=== PATIENT | female | born 1940 | race Caucasian/White ===

== ENCOUNTER → 2016-05-05 | Outpatient (CLI) | payer MEDICARE, OTHER ==
[~2016-05-05] MED LIST: ALPR0.5T3 PO; CARD180C5 PO; ESCI10TA PO; GABA600T PO; LOSA25TA PO; TRIA1SPR6 EACH NARE
--- NOTE | 2016-05-20 12:55 | RSPPFT ---
DATE OF PROCEDURE: 05/05/16 COMMENTS: VOLUMES DYNAMIC: FVC and FEV1 normal. STATIC: VTG, RV mildly increased; TLC normal. FLOWS: FEV1% mildly reduced; FEF 25-75 severely reduced. DIFFUSION: Normal. FLOW VOLUME LOOP: Terminal airflow obstruction. IMPRESSION: Mild obstructive ventilatory defect with no reduction in diffusion but with mild hyperinflation and a mild increase in airways resistance. There is significant improvement post-bronchodilator.
== END ==
LOC: HRSP 09:42
PROVIDERS: ATTEND Internal Medicine
DX: J44.9 Chronic obstructive pulmonary disease, unspecified (principal)
CPT/HCPCS: 94620

== ENCOUNTER → 2016-10-22 | Outpatient (CLI) | payer MEDICARE, OTHER ==
[~2016-10-22] MED LIST changes: -ALPR0.5T3 PO; -CARD180C5 PO; -ESCI10TA PO; +GABA300C5 PO; +LEXA10TA PO; -TRIA1SPR6 EACH NARE; +VIST25CA PO
[2016-10-22 09:10] LABS: BASOPHIL # 0.1 TH/MM3 (0-0.2); BASOPHIL % 1.9 % (0.0-2.0); EOSINOPHIL # 0.2 TH/MM3 (0-0.4); HEMATOCRIT 45.3 % (35.0-46.0); HEMO FLAGS DIFF FINAL; LYMPH % 26.9 % (9.0-44.0); LYMPHOCYTE # 1.4 TH/MM3 (1.0-4.8); MEAN CELL VOLUME 86.1 FL (80.0-100.0); MEAN CORPUSCULAR HEMOGLOBIN 28.9 PG (27.0-34.0); MEAN CORPUSCULAR HGB CONC 33.6 % (32.0-36.0); MONO % 9.6 % (0.0-8.0); NEUT % 58.6 % (16.0-70.0); PLATELET COUNT 216 TH/MM3 (150-450); RED BLOOD COUNT 5.26 MIL/MM3 (4.00-5.30); WHITE BLOOD COUNT 5.1 TH/MM3 (4.0-11.0)
[2016-10-22 09:42] LABS: AST (GOT) 17 U/L (15-37); BICARBONATE 25.4 MEQ/L (21.0-32.0); BLOOD UREA NITROGEN 11 MG/DL (7-18); GLOMERULAR FILTRATION RATE 63 ML/MIN (>89); GLUCOSE,FASTING 91 MG/DL (74-99)
[2016-10-22 14:55] LABS: ALKALINE PHOSPHATASE 55 U/L (45-117); ALT (GPT) 18 U/L (10-53)
[2016-10-22 14:56] LABS: ANION GAP 7 MEQ/L (5-15); CHLORIDE 106 MEQ/L (98-107); POTASSIUM 3.9 MEQ/L (3.5-5.1); SODIUM (NA) 138 MEQ/L (136-145); TOTAL BILIRUBIN ADULT 0.4 MG/DL (0.2-1.0)
[2016-10-22 14:57] LABS: LDL CHOLESTEROL 143 MG/DL (0-99)
== END ==
LOC: PLAB 07:17
PROVIDERS: ATTEND Family Medicine
DX: Z00.00 Encounter for general adult medical examination without abnormal findings (principal); G62.2 Polyneuropathy due to other toxic agents; R39.0 Extravasation of urine; R53.83 Other fatigue; G93.3 Postviral and related fatigue syndromes; R53.81 Other malaise; R53.1 Weakness; G62.9 Polyneuropathy, unspecified; Z77.010 Contact with and (suspected) exposure to arsenic
CPT/HCPCS: 36415; 80053; 80061; 82175; 82306; 82607; 84443; 85025

== ENCOUNTER 2016-11-27 13:06 | Emergency (ER) | payer MEDICARE, OTHER ==
[~2016-11-27] VITALS: Ht 167.6 cm; Wt 62.0 kg
[~2016-11-27 13:06] MED LIST changes: -GABA300C5 PO; -LEXA10TA PO
[2016-11-27 13:13] VITALS: BP 202/95; PULSE 70; RESP 16; TEMP 98.9; O2SAT 96
[2016-11-27] MEDS ORDERED: GABA300C5 PO (13:29)
[2016-11-27] MEDS ORDERED: SODIUM CHLORIDE 0.9% FLUSH 10 ML FLUSH IVF PRN (13:45)
--- NOTE | 2016-11-27 13:51 | PD ---
HPI Chief Complaint: Neuro Symptoms/ Deficits Time Seen by Provider: 13:39 Travel History International Travel<30 days: No Contact w/Intl Traveler<30days: No Traveled to known affect area: No History of Present Illness HPI This patient complains of numbness in her left hand. It radiated up her arm to the level of the shoulder. It lasted approximately 2 minutes and resolve spontaneously. She is currently having no numbness problems. Denies muscle weakness anywhere or speech slurring or confusion. She did report having frontal headache. She takes a baby aspirin daily. No prior history of stroke or TIA. She's had this happen twice in the last month and both resolved spontaneously. No alleviating factors. No exacerbating factors. She has history of anxiety but does not take antihypertensives. Blood pressure 203 systolic PFSH Past Medical History Arthritis: Yes (PER PT) Anxiety: Yes Cardiovascular Problems: Yes High Cholesterol: Yes COPD: Yes Diminished Hearing: No Gastrointestinal Disorders: Yes (CONSTIPATION AND DIARRHEA) Headaches: Yes Hypertension: Yes Neurologic: Yes (NEUROPATHY PER PT.) Immunizations Current: Yes Pneumonia: Yes Tetanus Vaccination: Unknown ?: Not Menopausal: Yes : 4 Para: 3 : 1 Dilation and Curettage (D&C): Yes Past Surgical History Abdominal Surgery: Yes (LEFT INGUINAL HERNIA REPAIR 2009) Oral Surgery: Yes (CROWNS ) Other Surgery: Yes (BREAST REDUCTION 1993) Social History Alcohol Use: No Tobacco Use: No (QUIT 1979) Substance Use: No Allergies-Medications (Allergen,Severity, Reaction): Coded Allergies: No Known Allergies (Verified , 11/27/16) Reported Meds & Prescriptions Reported Meds & Active Scripts Active Vistaril (Hydroxyzine Pamoate) 25 Mg Cap 25 Mg PO TID PRN Reported Gabapentin 300 Mg Cap 300 Mg PO BID Losartan (Losartan Potassium) 25 Mg Tab 12.5 Mg PO DAILY Review of Systems General / Constitutional: No: Fever Eyes: No: Visual changes HENT: Positive: Headaches Cardiovascular: No: Chest Pain or Discomfort Respiratory: No: Shortness of Breath Gastrointestinal: No: Abdominal Pain Genitourinary: No: Dysuria Musculoskeletal: No: Pain Skin: No Rash Neurologic: Positive: Headache, Sensory Disturbance, No: Weakness Psychiatric: Positive: Anxiety, No: Depression Endocrine: No: Polydipsia Hematologic/Lymphatic: No: Easy Bruising Physical Exam Narrative GENERAL: Well-nourished, well-developed patient in no apparent distress. SKIN: Focused skin assessment reveals no rash and nodules. Skin is Warm and dry. HEAD: Atraumatic. Normocephalic. EYES: Pupils equal and round. No scleral icterus. No injection or drainage. ENT: No nasal bleeding or discharge. Mucous membranes pink and moist. NECK: Trachea midline. No JVD. CARDIOVASCULAR: Regular rate and rhythm. No murmur appreciated. RESPIRATORY: No accessory muscle use. Clear to auscultation. Breath sounds equal bilaterally. GASTROINTESTINAL: Abdomen soft, non-tender, nondistended. Hepatic and splenic margins not palpable. MUSCULOSKELETAL: No obvious deformities. No clubbing. No cyanosis. No edema. NEUROLOGICAL: Awake and alert. No obvious cranial nerve deficits. Motor grossly within normal limits. Normal speech. Sensation intact to sharp and light touch. No facial droop. PSYCHIATRIC: Anxious mood and affect; insight and judgment normal. Data Data Last Documented VS Vital Signs Date Time Temp Pulse Resp B/P (MAP) Pulse Ox O2 Delivery O2 Flow Rate FiO2 11/27/16 14:47 64 16 169/82 (111) 97 11/27/16 13:13 98.9 Orders Orders Electrocardiogram (11/27/16 13:44) Prothrombin Time / Inr (Pt) (11/27/16 13:44) Act Partial Throm Time (Ptt) (11/27/16 13:44) Complete Blood Count With Diff (11/27/16 13:44) Basic Metabolic Panel (Bmp) (11/27/16 13:44) Ct Brain W/O Iv Contrast(Rout) (11/27/16 13:44) Ecg Monitoring (11/27/16 13:44) Iv Access Insert/Monitor (11/27/16 13:44) Oximetry (11/27/16 13:44) Sodium Chloride 0.9% Flush (Ns Flush) (11/27/16 13:45) Labs Laboratory Tests Test 11/27/16 13:45 White Blood Count 7.8 TH/MM3 Red Blood Count 5.00 MIL/MM3 Hemoglobin 14.1 GM/DL Hematocrit 42.1 % Mean Corpuscular Volume 84.2 FL Mean Corpuscular Hemoglobin 28.1 PG Mean Corpuscular Hemoglobin Concent 33.4 % Red Cell Distribution Width 13.0 % Platelet Count 220 TH/MM3 Mean Platelet Volume 8.6 FL Neutrophils (%) (Auto) 63.5 % Lymphocytes (%) (Auto) 24.8 % Monocytes (%) (Auto) 8.5 % Eosinophils (%) (Auto) 2.4 % Basophils (%) (Auto) 0.8 % Neutrophils # (Auto) 4.9 TH/MM3 Lymphocytes # (Auto) 1.9 TH/MM3 Monocytes # (Auto) 0.7 TH/MM3 Eosinophils # (Auto) 0.2 TH/MM3 Basophils # (Auto) 0.1 TH/MM3 CBC Comment DIFF FINAL Differential Comment Prothrombin Time 10.9 SEC Prothromb Time International Ratio 1.0 RATIO Activated Partial Thromboplast Time 28.2 SEC Blood Urea Nitrogen 15 MG/DL Creatinine 0.85 MG/DL Random Glucose 111 MG/DL Calcium Level 9.4 MG/DL Sodium Level 131 MEQ/L Potassium Level 4.0 MEQ/L Chloride Level 99 MEQ/L Carbon Dioxide Level 24.6 MEQ/L Anion Gap 7 MEQ/L Estimat Glomerular Filtration Rate 65 ML/MIN MDM Medical Decision Making Medical Screen Exam Complete: Yes Emergency Medical Condition: Yes Medical Record Reviewed: Yes Differential Diagnosis TIA, CVA, anxiety, hypertensive urgency Narrative Course I have reviewed the patient's electronic medical record. IV placed CBC is normal Metabolic profile is normal Coagulation studies are normal Brain CT shows microvascular ischemic change I reviewed her EKG shows sinus rhythm without ectopy Extended cardiac monitoring shows sinus rhythm without ectopy At this time patient is neurologically intact. Her symptoms have resolved. However she has had TIA-like symptoms on and off for the last month and presents with very accelerated hypertension. I recommended hospitalization for neurologic evaluation. Patient is thought about it and refused. She will sign out AMA. I told her she is at risk for a full-blown stroke. Diagnosis Primary Impression: Left arm numbness Additional Impression: Accelerated hypertension Disposition: 07 AGAINST MEDICAL ADVICE Dixon Solis MD Nov 27, 2016 13:51
[2016-11-27 13:52] LABS: AUTOMATED NEUTROPHIL # 4.9 TH/MM3 (1.8-7.7); BASOPHIL # 0.1 TH/MM3 (0-0.2); BASOPHIL % 0.8 % (0.0-2.0); EOSINOPHIL # 0.2 TH/MM3 (0-0.4); EOSINOPHIL % 2.4 % (0.0-4.0); HEMATOCRIT 42.1 % (35.0-46.0); LYMPH % 24.8 % (9.0-44.0); LYMPHOCYTE # 1.9 TH/MM3 (1.0-4.8); MEAN CELL VOLUME 84.2 FL (80.0-100.0); MEAN CORPUSCULAR HEMOGLOBIN 28.1 PG (27.0-34.0); MEAN CORPUSCULAR HGB CONC 33.4 % (32.0-36.0); MONO % 8.5 % (0.0-8.0); NEUT % 63.5 % (16.0-70.0); PLATELET COUNT 220 TH/MM3 (150-450); WHITE BLOOD COUNT 7.8 TH/MM3 (4.0-11.0)
[2016-11-27 13:54] VITALS: BP 186/85; PULSE 68; RESP 20; O2SAT 96; O2SAT 98
[2016-11-27 13:54] LABS: HEMO FLAGS DIFF FINAL
[2016-11-27 14:05] LABS: BICARBONATE 24.6 MEQ/L (21.0-32.0)
[2016-11-27 14:07] LABS: APTT (PATIENT) 28.2 SEC (24.3-30.1); PROTHROMBIN TIME - PATIENT 10.9 SEC (9.8-11.6)
--- NOTE | 2016-11-27 14:22 | RADRPT ---
EXAM DATE/TIME: 11/27/2016 14:09 [facility] COMPARISON: CT BRAIN W/O CONTRAST, April 15, 2014, 5:09. INDICATIONS : Left hand and arm numbness. Cephalgia. Evaluate for cerebrovascualar accident. RADIATION DOSE: 61.69 CTDIvol (mGy) MEDICAL HISTORY : Chronic obstructive pulmonary disease. Hypertension. SURGICAL HISTORY : Inguinal hernia repair. ENCOUNTER: Initial ACUITY: 1 day PAIN SCALE: 4/10 LOCATION: cranial TECHNIQUE: Multiple contiguous axial images were obtained of the head. Using automated exposure control and adj ustment of the mA and/or kV according to patient size, radiation dose was kept as low as reasonably a chievable to obtain optimal diagnostic quality images. DICOM format image data is available electro nically for review and comparison. FINDINGS: CEREBRUM: Mild cerebral volume loss. [id number] periventricular white matter hypodensities similar to pre vious exam. Spencer-white matter differentiation appears maintained. The ventricles are normal for degre e of atrophy. No evidence of midline shift, mass lesion, hemorrhage or acute infarction. No extra-a xial fluid collections are seen. POSTERIOR FOSSA: The cerebellum and brainstem are intact. The 4th ventricle is midline. The cerebellopontine angle i s unremarkable. EXTRACRANIAL: The visualized portion of the orbits is intact. SKULL: The calvaria is intact. No evidence of skull fracture. CONCLUSION: 1. Senescent changes with redemonstration of periventricular small vessel ischemic white matter demye lination. 2. No acute intracranial abdomen. Usama Montenegro MD on November 27, 2016 at 14:19 Board Certified Radiologist. This report was verified electronically.
[2016-11-27 14:47] VITALS: BP 169/82
--- NOTE | 2016-11-27 16:50 | EKG ---
Date Performed: 11/27/2016 Time Performed: 14:05:47 PTAGE: 76 years EKG: Sinus rhythm WITH FIRST DEGREE AV BLOCK ABNORMAL ECG WARNING: DATA QUALITY MAY AFFECT INTERPRETATION PREVIOUS TRACING : 04/15/2014 05.16 No significant change from previous tracing noted. DOCTOR: Samuel Salcedo Interpretating Date/Time 11/27/2016 16:49:22
[2016-12-02] MEDS ORDERED: LEXA10TA PO (10:59)
== END 2016-11-27 15:04 | disposition left against medical advice (07) ==
LOC: PHED 13:06
DX: R20.0 Anesthesia of skin (principal); E78.00 Pure hypercholesterolemia, unspecified; I10 Essential (primary) hypertension; J44.9 Chronic obstructive pulmonary disease, unspecified; Z79.82 Long term (current) use of aspirin
CPT/HCPCS: 70450; 80048; 85025; 85610; 85730; 93005

== ENCOUNTER → 2017-04-16 | Outpatient (CLI) | payer MEDICARE, OTHER ==
[~2017-04-16] MED LIST changes: -GABA600T PO; +LEXA20TA PO; +LYRI100C PO; -VIST25CA PO
[2017-04-16 10:40] LABS: AUTOMATED NEUTROPHIL # 3.7 TH/MM3 (1.8-7.7); BASOPHIL # 0.1 TH/MM3 (0-0.2); BASOPHIL % 1.6 % (0.0-2.0); EOSINOPHIL # 0.1 TH/MM3 (0-0.4); EOSINOPHIL % 1.8 % (0.0-4.0); HEMATOCRIT 46.7 % (35.0-46.0); HEMOGLOBIN 16.1 GM/DL (11.6-15.3); LYMPH % 19.6 % (9.0-44.0); LYMPHOCYTE # 1.1 TH/MM3 (1.0-4.8); MEAN CELL VOLUME 84.2 FL (80.0-100.0); MEAN CORPUSCULAR HGB CONC 34.5 % (32.0-36.0); MEAN PLATELET VOLUME 8.4 FL (7.0-11.0); MONO % 8.9 % (0.0-8.0); MONOCYTE # 0.5 TH/MM3 (0-0.9); NEUT % 68.1 % (16.0-70.0); PLATELET COUNT 239 TH/MM3 (150-450); RED BLOOD COUNT 5.55 MIL/MM3 (4.00-5.30); RED CELL DISTRIBUTION WIDTH 14.5 % (11.6-17.2); WHITE BLOOD COUNT 5.4 TH/MM3 (4.0-11.0)
[2017-04-16 10:47] LABS: ALBUMIN 3.9 GM/DL (3.4-5.0); AST (GOT) 20 U/L (15-37); BICARBONATE 28.8 MEQ/L (21.0-32.0); BLOOD UREA NITROGEN 10 MG/DL (7-18); CALCIUM 8.9 MG/DL (8.5-10.1); CHLORIDE 98 MEQ/L (98-107); CHOLESTEROL 241 MG/DL (120-200); CREATININE 0.82 MG/DL (0.50-1.00); GLOMERULAR FILTRATION RATE 67 ML/MIN (>89); GLUCOSE,FASTING 97 MG/DL (74-99); SODIUM (NA) 132 MEQ/L (136-145)
[2017-04-16 11:14] LABS: ALKALINE PHOSPHATASE 73 U/L (45-117); ALT (GPT) 13 U/L (10-53); CHOLESTEROL/ HDL RATIO 2.96 RATIO; HDL CHOLESTEROL 81.2 MG/DL (40.0-60.0); LDL CHOLESTEROL 143 MG/DL (0-99); TOTAL BILIRUBIN ADULT 0.6 MG/DL (0.2-1.0); TOTAL PROTEIN 7.3 GM/DL (6.4-8.2); TRIGLYCERIDES 84 MG/DL (42-150)
== END ==
LOC: PLAB 07:20
PROVIDERS: ATTEND Physician Assistant Medical
DX: R53.83 Other fatigue (principal); G62.9 Polyneuropathy, unspecified
CPT/HCPCS: 36415; 80053; 80061; 82607; 84443; 85025

== ENCOUNTER → 2017-06-11 | Outpatient (CLI) | payer MEDICARE, OTHER ==
[2017-06-11 10:42] LABS: BICARBONATE 28.4 MEQ/L (21.0-32.0); CALCIUM 9.5 MG/DL (8.5-10.1); CREATININE 0.92 MG/DL (0.50-1.00)
== END ==
LOC: PLAB 07:24
PROVIDERS: ATTEND Internal Medicine Interventional Cardiology
DX: I11.9 Hypertensive heart disease without heart failure (principal); R06.02 Shortness of breath; Z79.899 Other long term (current) drug therapy
CPT/HCPCS: 36415; 80048

== ENCOUNTER → 2017-07-08 | Outpatient (CLI) | payer MEDICARE, OTHER ==
[2017-07-08 10:23] LABS: BICARBONATE 28.5 MEQ/L (21.0-32.0); CALCIUM 9.4 MG/DL (8.5-10.1); CREATININE 1.01 MG/DL (0.50-1.00)
== END ==
LOC: PLAB 07:11
PROVIDERS: ATTEND Internal Medicine Interventional Cardiology
DX: Z79.899 Other long term (current) drug therapy (principal)
CPT/HCPCS: 36415; 80048